=== PATIENT | female | born 1990 | race Caucasian/White ===

== ENCOUNTER 2018-03-23 15:02 | Inpatient (IN) | payer BC ==
[2018-03-23 15:31] VITALS: BMI 28.1
--- NOTE | 2018-03-23 16:52 | HP ---
COWS - Scale Resting Pulse: 2= ME 101-120 Sweatin= Chills/Flushing Restless Observation: 1= Difficult to Sit Still Pupil Size: 0= Normal to Room Light Bone or Joint Aches: 4=Acute Joint/Muscle Pain Runny Nose/ Eye Tearin= None GI Upset > 30mins: 2= Nausea/Diarrhea Tremor Observation: 2= Slight Tremor Visible Yawning Observation: 0= None Anxiety or Irritability: 2=Irritable/Anxious Goose Flesh Skin: 0=Smooth Skin COWS Score: 14 CIWA Score Nausea/Vomitin-Mild Nausea/No Vomiting Muscle Tremors: 3 Anxiety: 3 Agitation: 3 Paroxysmal Sweats: 3 Orientation: 0-Oriented Tacttile Disturbances: 2-Mild Itch/Numbness/Burn Auditory Disturbances: 1-Very Mild Visual Disturbances: 1-Very Mild Sensitivity Headache: 2-Mild CIWA-Ar Total Score: 19 - Admission Criteria [facility] Guidelines: Admission for Medically Managed Detox: Requires at least one of the followin. CIWA greater than 12 2. Seizures within the past 24 hours 3. Delirium tremens within the past 24 hours 4. Hallucinations within the past 24 hours 5. Acute intervention needed for co occurring medical disorder 6. Acute intervention needed for co occurring psychiatric disorder 7. Severe withdrawal that cannot be handled at a lower level of care (continued vomiting, continued diarrhea, abnormal vital signs) requiring intravenous medication and/or fluids 8. Patient presents the following: CIWA greater than 12 Admission Criteria Met: Admission criteria met Admission ROS S - [facility] Chief Complaint: seeking detox for c/o withdrawal sx's associated with heroin and alchol withdrawal. Allergies/Adverse Reactions: Allergies Allergy/AdvReac Type Severity Reaction Status Date / Time No Known Allergies Allergy Verified 03/23/18 15:42 History of Present Illness: 27 Y.O. FEMALE WITH HX/O ALCOHOLISM AND OPIOID DEPENDENCE HERE FOR DETOX. CLIENT IS KNOWN TO THIS PROGRAM .LAST HERE 11/2015. SELF REFERRED. DENIES ANY SIGNIFICANT CLEAN DERREK,E IN THE PAST YEAR. STATES LAST DETOX WAS ABOUT A YEAR AGO AT [facility]. DENIES HX/O SEIZURE, AVH, DT'S. SHE DOES REPORTS BLACK OUT EPISODES. CURRENTLY RESIDE WITH FAMILY. PMHX-ASTHMA PSYCH- INSOMNIA, ANXIETY DEPRESSION Exam Limitations: No Limitations - Ebola screening Have you traveled outside of the country in the last 21 days: No Have you had contact with anyone from an Ebola affected area: No Have you been sick,other than usual withdrawal symptoms: No Do you have a fever: No - Review of Systems Constitutional: Chills, Malaise, Night Sweats, Changes in sleep, Unintentional Wgt. Loss EENT: reports: No Symptoms Reported Respiratory: reports: No Symptoms reported Cardiac: reports: No Symptoms Reported GI: reports: Nausea, Poor Fluid Intake : reports: No Symptoms Reported Musculoskeletal: reports: Back Pain, Joint Pain, Joint Stiffness Integumentary: reports: No Symptoms Reported Neuro: reports: Tremors (R/T WITHDRAWAL) Endocrine: reports: No Symptoms Reported Hematology: reports: No Symptoms Reported Psychiatric: reports: Agitated, Anxious, Depressed Other Systems: Reviewed and Negative Patient History - Patient Medical History Hx Anemia: No Hx Asthma: Yes (ON ALBUTEROL) Hx Chronic Obstructive Pulmonary Disease (COPD): No Hx Cancer: No Hx Cardiac Disorders: No Hx Congestive Heart Failure: No Hx Hypertension: No Hx Hypercholesterolemia: No Hx Pacemaker: No HX Cerebrovascular Accident: No Hx Seizures: No Hx Dementia: No Hx Diabetes: No Hx Gastrointestinal Disorders: No Hx Liver Disease: No Hx Genitourinary Disorders: No Hx Sexually Transmitted Disorders: No Hx Renal Disease (ESRD): No Hx Thyroid Disease: No Hx Human Immunodeficiency Virus (HIV): No Hx Hepatitis C: No Hx Depression: Yes Hx Suicide Attempt: No Hx Bipolar Disorder: No Hx Schizophrenia: No Other Medical History: ANXIETY, INSOMNIA - Patient Surgical History Past Surgical History: Yes Hx Neurologic Surgery: No Hx Cataract Extraction: No Hx Cardiac Surgery: No Hx Lung Surgery: No Hx Breast Surgery: No Hx Breast Biopsy: No Hx Abdominal Surgery: No Hx Appendectomy: No Hx Cholecystectomy: No Hx Genitourinary Surgery: No Hx Section: No Hx Orthopedic Surgery: No Other Surgical History: tmj AT AGE 20; TONSILLECTOMY Anesthesia Reaction: No - PPD History Previous Implant?: Yes Documented Results: Negative w/proof Implanted On Prior [facility] Admission?: Yes Date: 11/22/15 Results: NEGATIVE PPD to be Administered?: Yes - Reproductive History Patient is a Female of Child Bearing Age (11 -55 yrs old): Yes Last Menstrual Period: 03/23/18 LMP comment: Patient : No ([facility] NEGATIVE) - Smoking Cessation Smoking history: Current some day smoker Have you smoked in the past 12 months: Yes Aproximately how many cigarettes per day: 2 Cigars Per Day: 0 Hx Chewing Tobacco Use: No Initiated information on smoking cessation: Yes 'Breaking Loose' booklet given: 03/23/18 - Substance & Tx. History Hx Alcohol Use: Yes Hx Substance Use: Yes Substance Use Type: Alcohol, Heroin, Marijuana Hx Substance Use Treatment: Yes ([facility]) - Substances Abused Heroin Route: Injection Frequency: Daily Amount used: 1 bundle Age of first use: 22 Date of Last Use: 03/23/18 Alcohol Route: Oral Frequency: Daily Amount used: 6 cans of beer, 2-3 glasses of rum Age of first use: 15 Date of Last Use: 03/23/18 Marijuana/Hashish Route: Smoking Frequency: 1-2 times per week Amount used: 1 joint Age of first use: 15 Date of Last Use: 03/21/18 Family Disease History - Family Disease History Family Disease History: Other: Father (ALCOHOLISM), Mother (ALCOHOLISM), Brother (ALCOHOLISM) Admission Physical Exam [facility] - Vital Signs Vital Signs: Vital Signs - 24 hr 03/23/18 15:28 Temperature 98.9 F Pulse Rate 102 H Respiratory 18 Rate Blood Pressure 127/83 - Physical General Appearance: Yes: Appropriately Dressed, Tremorous, Anxious HEENTM: Yes: EOMI, Normocephalic, Normal Voice, NICK (SLIGHT DIALATED), Pharynx Normal Respiratory: Yes: Chest Non-Tender, Lungs Clear, Normal Breath Sounds, No Respiratory Distress, No Accessory Muscle Use Neck: Yes: No masses,lesions,Nodules, Supple, Trachea in good position Breast: Yes: Breast Exam Deferred Cardiology: Yes: Regular Rhythm, S1, S2, Tachycardia Abdominal: Yes: Normal Bowel Sounds, Non Tender, Soft, Other (OLD SCARS FROM CLIENT USE TO CUT SELF) Genitourinary: Yes: Within Normal Limits (NO C/O) Back: Yes: Normal Inspection Musculoskeletal: Yes: full range of Motion, Gait Steady Extremities: Yes: Normal Range of Motion, Non-Tender, Tremors Neurological: Yes: Fully Oriented, Alert, Motor Strength 5/5, Depressed Affect Integumentary: Yes: Warm, Moist, Other (FLUSHED) Lymphatic: Yes: Within Normal Limits - Diagnostic (1) Opioid dependence with withdrawal Current Visit: Yes Status: Acute (2) Cannabis dependence, uncomplicated Current Visit: Yes Status: Chronic (3) Depressed affect Current Visit: Yes Status: Acute (4) At risk for dehydration due to poor fluid intake Current Visit: Yes Status: Acute (5) Alcohol dependence with uncomplicated withdrawal Current Visit: Yes Status: Acute (6) Asthma Current Visit: Yes Status: Chronic Qualifiers: Asthma severity: mild Asthma persistence: intermittent Asthma complication type: uncomplicated Qualified Code(s): J45.20 - Mild intermittent asthma, uncomplicated (7) Substance or medication-induced sleep disorder, insomnia type Current Visit: Yes Status: Suspected Cleared for Admission [facility] - Detox or Rehab [facility] Level of Care: Medically Managed Detox Regimen/Protocol: Methadone/Valium Claeared for Rehab Admission: No S Breath Alcohol Content Breath Alcohol Content: 0.074 Urine Pregancy Test - Result Urine Test Results: Negative- NO Line Present Urine Drug Screen - Results Drug Screen Negative: No Urine Drug Screen Results: THC-Marijuana, OPI-Opiates, OXY-Oxycodone
[2018-03-23] MEDS ORDERED: P-EPHED 60MG/TRIPROLIDI 2.5MG TABLET PO PRN (17:10)
[2018-03-23] MEDS ORDERED: MAGNESIUM HYDROX 2400MG/30ML ORAL SUSPENSION 30 ML CUP PO PRN (17:10)
[2018-03-23] MEDS ORDERED: MENTHOL/PHENOL 1 EACH UD MM PRN (17:10)
[2018-03-23] MEDS ORDERED: LOPERAMIDE HCL 2 MG CAPSULE PO PRN (17:10)
[2018-03-23] MEDS ORDERED: MAGNESIUM CITRATE 300 ML BOTTLE PO PRN (17:10)
[2018-03-23] MEDS ORDERED: ACETAMINOPHEN 325 MG TABLET (FP) PO PRN (17:10)
[2018-03-23] MEDS ORDERED: guaiFENesin/D-METHORPHAN HB 10 ML UNIT-DOSE CUPS PO PRN (17:10)
[2018-03-23] MEDS ORDERED: MAG HYDROX/AL HYDROX/SIMETH 30 ML UNIT-DOSE CUP PO PRN (17:10)
[2018-03-23] MEDS ORDERED: NICOTINE POLACRILEX 2 MG GUM BC PRN (17:10)
[2018-03-23] MEDS ORDERED: ALBUTEROL SO4 8 GM HFA INHALER IH PRN (17:11)
[2018-03-23] MEDS ORDERED: METHADONE HCL 10 MG TABLET (FOR DETOX USE ONLY) PO ONE ×2 (18:45→23:00)
[2018-03-23] MEDS ORDERED: diazePAM 5 MG TABLET PO ONE (18:45)
[2018-03-23] MEDS: IBUPROFEN 400 MG TABLET (FP) PO PRN (20:40)
[2018-03-23] MEDS ORDERED: MELATONIN 5 MG TABLETS PO PRN (22:00)
[2018-03-23] MEDS: THIAMINE HCL 100 MG TABLET (FP) PO SCH (22:59)
[2018-03-23] MEDS: diazePAM 5 MG TABLET PO SCH (23:00)
[2018-03-24] MEDS: diazePAM 5 MG TABLET PO SCH ×3 (05:14→22:12)
[2018-03-24] MEDS: IBUPROFEN 400 MG TABLET (FP) PO PRN ×2 (08:38→17:51)
[2018-03-24] MEDS: diazePAM 5 MG TABLET PO PRN ×2 (08:38→17:49)
[2018-03-24] MEDS: NICOTINE 14 MG/24 HOURS TOPICAL PATCH TD SCH (09:56)
[2018-03-24] MEDS: PRENATAL VITAMINS W/ FOLIC ACID TABLET (FP) PO SCH (09:56)
[2018-03-24] MEDS ORDERED: METHADONE HCL 10 MG TABLET (FOR DETOX USE ONLY) PO SCH (10:00)
[2018-03-24 10:45] LABS: HEMOGLOBIN 12.5 GM/dL (10.7-15.3); MCH 29.4 pg (25.7-33.7); MCHC 32.1 g/dl (32.0-36.0); MEAN CELL VOLUME 91.6 fl (80-96); PLATELET COUNT 143 K/MM3 (134-434); RBC 4.26 M/mm3 (3.60-5.2); RDW 13.4 % (11.6-15.6); WHITE BLOOD COUNT 6.3 K/mm3 (4.0-10.0)
[2018-03-24 11:13] LABS: BLOOD UREA NITROGEN 9 mg/dL (7-18); CREATININE 0.7 mg/dL (0.55-1.3); GLUCOSE,RANDOM 77 mg/dL (74-106); SODIUM 136 mmol/L (136-145)
[2018-03-24 11:14] LABS: ALBUMIN 3.7 g/dl (3.4-5.0); ALK PHOS 52 U/L (45-117); ANION GAP 5 MMOL/L (8-16); BILIRUBIN,TOTAL 0.8 mg/dL (0.2-1); CALCIUM 9.2 mg/dL (8.5-10.1); CHLORIDE 104 mmol/L (98-107); CO2 27 mmol/L (21-32); POTASSIUM 4.2 mmol/L (3.5-5.1); SGOT/AST 103 U/L (15-37); SGPT/ALT 250 U/L (13-61); TOT PROT 7.2 g/dl (6.4-8.2)
--- NOTE | 2018-03-24 12:30 | PN ---
S CIWA - CIWA Score Nausea/Vomitin Muscle Tremors: 3 Anxiety: 3 Agitation: 3 Paroxysmal Sweats: 2 Orientation: 0-Oriented Tacttile Disturbances: 1-Very Mild Itch/Numbness Auditory Disturbances: 1-Very Mild Visual Disturbances: 1-Very Mild Sensitivity Headache: 2-Mild CIWA-Ar Total Score: 18 BHS COWS - Scale Resting Pulse: 0= [place] 80 or Below Sweatin= Chills/Flushing Restless Observation: 1= Difficult to Sit Still Pupil Size: 0= Normal to Room Light Bone or Joint Aches: 2= Severe Diffuse Aches Runny Nose/ Eye Tearin= Runny Nose/Eyes GI Upset > 30mins: 2= Nausea/Diarrhea Tremor Observation of Outstretched Hands: 2= Slight Tremor Visible Yawning Observation: 1= 1-2x During Session Anxiety or Irritability: 2=Irritable/Anxious Goose Flesh Skin: 3=Piloerection COWS Score: 16 BHS Progress Note (SOAP) Subjective: Tremors, nasal congestion, back pain, interrupted sleep and restlessness Objective: 03/24/18 12:28 Vital Signs 03/24/18 03/24/18 06:00 09:40 Temperature 98.6 F 98.2 F Pulse Rate 80 83 Respiratory 18 18 Rate Blood Pressure 138/91 138/82 Laboratory Last Values WBC 6.3 K/mm3 (4.0-10.0) 03/24/18 08:00 RBC 4.26 M/mm3 (3.60-5.2) 03/24/18 08:00 Hgb 12.5 GM/dL (10.7-15.3) 03/24/18 08:00 Hct 39.0 % (32.4-45.2) 03/24/18 08:00 MCV 91.6 fl (80-96) 03/24/18 08:00 MCH 29.4 pg (25.7-33.7) 03/24/18 08:00 MCHC 32.1 g/dl (32.0-36.0) 03/24/18 08:00 RDW 13.4 % (11.6-15.6) 03/24/18 08:00 Plt Count 143 K/MM3 (134-434) 03/24/18 08:00 MPV 12.0 fl (7.5-11.1) H 03/24/18 08:00 Sodium 136 mmol/L (136-145) 03/24/18 08:00 Potassium 4.2 mmol/L (3.5-5.1) 03/24/18 08:00 Chloride 104 mmol/L (98-107) 03/24/18 08:00 Carbon Dioxide 27 mmol/L (21-32) 03/24/18 08:00 Anion Gap 5 MMOL/L (8-16) L 03/24/18 08:00 BUN 9 mg/dL (7-18) 03/24/18 08:00 Creatinine 0.7 mg/dL (0.55-1.3) 03/24/18 08:00 Creat Clearance w eGFR > 60 (>60) 03/24/18 08:00 Random Glucose 77 mg/dL (74-106) 03/24/18 08:00 Calcium 9.2 mg/dL (8.5-10.1) 03/24/18 08:00 Total Bilirubin 0.8 mg/dL (0.2-1) 03/24/18 08:00 AST 103 U/L (15-37) H 03/24/18 08:00 ALT 250 U/L (13-61) H 03/24/18 08:00 Alkaline Phosphatase 52 U/L (45-117) 03/24/18 08:00 Total Protein 7.2 g/dl (6.4-8.2) 03/24/18 08:00 Albumin 3.7 g/dl (3.4-5.0) 03/24/18 08:00 RPR Titer Nonreactive (NONREACTIVE) 03/24/18 08:00 Labs noted Severe anxiety, crying due to back pain and lack of sleep Assessment: 03/24/18 12:29 Withdrawal sx Plan: Continue detox Add flexerill to regimen
[2018-03-24] MEDS: CYCLOBENZAPRINE HCL 10 MG TABLET (FP) PO PRN ×2 (13:22→22:20)
--- NOTE | 2018-03-24 14:49 | CONSULT ---
[facility] Psychiatric Consult - Data Date of interview: 03/24/18 Admission source: [facility] Identifying data: Readmission to [facility] for this 27 y/o female seeking detoxification treatment, on , for alcohol,opioid and cannabis dependence. Patient is single without children, domiciled, currently unemployed and supported by her parents. Substance Abuse History: Confirmed by patient in this interview. Details in current [facility] report : Smoking history: Current some day smoker. Have you smoked in the past 12 months: Yes. Aproximately how many cigarettes per day: 2. Cigars Per Day: 0. Hx Chewing Tobacco Use: No. Initiated information on smoking cessation: Yes. 'Breaking Loose' booklet given: 03/23/18. - Substance & Tx. History. Hx Alcohol Use: Yes. Hx Substance Use: Yes. Substance Use Type : Alcohol, Heroin, Marijuana. Hx Substance Use Treatment: Yes ([facility]) . - Substances Abused. Heroin. Route: Injection. Frequency: Daily. Amount used: 1 bundle. Age of first use: 22. Date of Last Use: 03/23/18. Alcohol. Route: Oral. Frequency: Daily. Amount used: 6 cans of beer, 2-3 glasses of rum. Age of first use: 15. Date of Last Use: 03/23/18. Marijuana/Hashish. Route: Smoking. Frequency: 1-2 times per week. Amount used : 1 joint. Age of first use: 15. Date of Last Use: 03/21/18 Medical History: Anemia and bronchial asthma. Psychiatric History: Patient admits to a history of one psychiatric hospitalization at [address] [place] [id number] (discharged after 4 days).Diagnosed with Bipolar Disorder, MDD and Anxiety Disorder. Ms Dale declares that she has been treated with various psychotropic medications (lithium, valproate, fluoxetine, duloxetine, klonopin, zolpidem, escitalopram). " Nothing worked for me. I stopped taking them ". Patient used to be followed at [facility] OPD clinic : NO SHOW for one year. History of suicide attempts (episodes of self mutilation). Physical/Sexual Abuse/Trauma History: Not discussed. Patient declines. Additional Comment: Urine Drug Screen Results: THC-Marijuana, OPI-Opiates, OXY- Oxycodone. Noted. Mental Status Exam - Mental Status Exam Alert and Oriented to: Time, Place, Person Cognitive Function: Good Patient Appearance: Well Groomed (overweight) Mood: Nervous, Anxious, Apprehensive Affect: Mood Congruent, Labile Patient Behavior: Fatigued, Appropriate, Cooperative Speech Pattern: Clear Voice Loudness: Normal Thought Process: Goal Oriented Thought Disorder: Not Present Hallucinations: Denies Suicidal Ideation: Denies Homicidal Ideation: Denies Insight/Judgement: Poor Sleep: Poorly, Difficulty falling asleep Appetite: Good Gait/Station: Normal Psychiatric Findings - Problem List ([place] 1, 2,3) (1) Opioid dependence with withdrawal Current Visit: Yes Status: Acute (2) Alcohol dependence with uncomplicated withdrawal Current Visit: Yes Status: Acute (3) Cannabis dependence, uncomplicated Current Visit: Yes Status: Acute (4) Sedative hypnotic or anxiolytic dependence Current Visit: Yes Status: Acute (5) Substance induced mood disorder Current Visit: Yes Status: Acute (6) Bipolar disorder Current Visit: No Status: Chronic Comment: As per self-report. Non compliant with treatment. (7) Insomnia Current Visit: Yes Status: Acute (8) Non-compliant patient Current Visit: Yes Status: Chronic - Initial Treatment Plan Initial Treatment Plan: Psychoeducation. Sleep hygiene. Detoxification in progress. Discussed with patient : current measures for relapse prevention ( methadone maintenance, FABIAN naltrexone, suboxone, NA/AA fellowships, psychotherapy). Responded with ambivalence. Hypnotic medications discussed as well. Patient agreed to a trial of mirtazapine. Side effects/benefits reviewed. Remeron 15 mg po hs. Ordered. Ms Dale is made aware of risks taken by abstaining from psychiatric OPD care (relapses, rehospitalizations, deterioration of functioning, recurrence of impulsive behaviors). Observation.
[2018-03-24] MEDS: THIAMINE HCL 100 MG TABLET (FP) PO SCH (22:12)
[2018-03-24] MEDS: MIRTAZAPINE 15 MG TABLET (FP) PO SCH (22:12)
[2018-03-25] MEDS: diazePAM 5 MG TABLET PO PRN ×3 (04:04→17:13)
[2018-03-25] MEDS: diazePAM 5 MG TABLET PO SCH ×2 (09:09→22:07)
[2018-03-25] MEDS: PRENATAL VITAMINS W/ FOLIC ACID TABLET (FP) PO SCH (09:09)
[2018-03-25] MEDS: NICOTINE 14 MG/24 HOURS TOPICAL PATCH TD SCH (09:39)
[2018-03-25] MEDS ORDERED: METHADONE HCL 5 MG TABLET (FOR DETOX USE ONLY) PO SCH (10:00)
[2018-03-25] MEDS: CYCLOBENZAPRINE HCL 10 MG TABLET (FP) PO PRN ×3 (10:23→22:07)
--- NOTE | 2018-03-25 11:11 | PN ---
S CIWA - CIWA Score Nausea/Vomitin-Mild Nausea/No Vomiting Muscle Tremors: 3 Anxiety: 3 Agitation: 2 Paroxysmal Sweats: 1-Minimal Palms Moist Orientation: 0-Oriented Tacttile Disturbances: 1-Very Mild Itch/Numbness Auditory Disturbances: 1-Very Mild Visual Disturbances: 0-None Headache: 1-Very Mild CIWA-Ar Total Score: 13 BHS COWS - Scale Resting Pulse: 0= [place] 80 or Below Sweatin= Chills/Flushing Restless Observation: 1= Difficult to Sit Still Pupil Size: 0= Normal to Room Light Bone or Joint Aches: 1= Mild Discomfort Runny Nose/ Eye Tearin= Nasal Congestion GI Upset > 30mins: 2= Nausea/Diarrhea Tremor Observation of Outstretched Hands: 2= Slight Tremor Visible Yawning Observation: 1= 1-2x During Session Anxiety or Irritability: 1=Feels Anxious/Irritable Goose Flesh Skin: 0=Smooth Skin COWS Score: 10 BHS Progress Note (SOAP) Subjective: wants to leave a day early to rehab patient prefer one dose of 15 mg of methadone instead of two doses sweat tremor anxiety mild body aches Objective: 03/25/18 11:12 Vital Signs Temperature 98.2 F 03/25/18 10:19 Pulse Rate 82 03/25/18 10:19 Respiratory Rate 18 03/25/18 10:19 Blood Pressure 128/69 03/25/18 10:19 O2 Sat by Pulse Oximetry (%) Laboratory Last Values WBC 6.3 K/mm3 (4.0-10.0) 03/24/18 08:00 RBC 4.26 M/mm3 (3.60-5.2) 03/24/18 08:00 Hgb 12.5 GM/dL (10.7-15.3) 03/24/18 08:00 Hct 39.0 % (32.4-45.2) 03/24/18 08:00 MCV 91.6 fl (80-96) 03/24/18 08:00 MCH 29.4 pg (25.7-33.7) 03/24/18 08:00 MCHC 32.1 g/dl (32.0-36.0) 03/24/18 08:00 RDW 13.4 % (11.6-15.6) 03/24/18 08:00 Plt Count 143 K/MM3 (134-434) 03/24/18 08:00 MPV 12.0 fl (7.5-11.1) H 03/24/18 08:00 Sodium 136 mmol/L (136-145) 03/24/18 08:00 Potassium 4.2 mmol/L (3.5-5.1) 03/24/18 08:00 Chloride 104 mmol/L (98-107) 03/24/18 08:00 Carbon Dioxide 27 mmol/L (21-32) 03/24/18 08:00 Anion Gap 5 MMOL/L (8-16) L 03/24/18 08:00 BUN 9 mg/dL (7-18) 03/24/18 08:00 Creatinine 0.7 mg/dL (0.55-1.3) 03/24/18 08:00 Creat Clearance w eGFR > 60 (>60) 03/24/18 08:00 Random Glucose 77 mg/dL (74-106) 03/24/18 08:00 Calcium 9.2 mg/dL (8.5-10.1) 03/24/18 08:00 Total Bilirubin 0.8 mg/dL (0.2-1) 03/24/18 08:00 AST 103 U/L (15-37) H 03/24/18 08:00 ALT 250 U/L (13-61) H 03/24/18 08:00 Alkaline Phosphatase 52 U/L (45-117) 03/24/18 08:00 Total Protein 7.2 g/dl (6.4-8.2) 03/24/18 08:00 Albumin 3.7 g/dl (3.4-5.0) 03/24/18 08:00 RPR Titer Nonreactive (NONREACTIVE) 03/24/18 08:00 HIV 1&2 Antibody Screen Negative 03/24/18 09:30 HIV P24 Antigen Negative 03/24/18 09:30 lab noted repeat ast alt Assessment: 03/25/18 11:15 withdrawal sx 03/25/18 11:16 liver enzyme elevation Plan: continue detox
[2018-03-25] MEDS: MIRTAZAPINE 15 MG TABLET (FP) PO SCH (22:07)
[2018-03-25] MEDS: THIAMINE HCL 100 MG TABLET (FP) PO SCH (22:07)
[2018-03-25 23:07] LABS: URINE APPEARANCE CLEAR; URINE BILIRUBIN NEGATIVE (<2.0 mg/dL); URINE COLOR LTYELLOW; URINE GLUCOSE (UA) NEGATIVE (NEGATIVE); URINE KETONE NEGATIVE (NEGATIVE); URINE LEUK ESTERASE NEGATIVE (NEGATIVE); URINE NITRITE NEGATIVE (NEGATIVE); URINE PROTEIN NEGATIVE (NEGATIVE); URINE UROBILINOGEN NEGATIVE mg/dL (0.2-1.0)
[2018-03-25 23:17] LABS: EPI CELLS RARE /HPF (FEW)
[2018-03-26] MEDS: diazePAM 5 MG TABLET PO PRN ×3 (01:21→12:38)
[2018-03-26] MEDS: CYCLOBENZAPRINE HCL 10 MG TABLET (FP) PO PRN ×2 (05:36→13:10)
[2018-03-26] MEDS ORDERED: METHADONE HCL 10 MG TABLET (FOR DETOX USE ONLY) PO SCH (10:00)
[2018-03-26] MEDS: NICOTINE 14 MG/24 HOURS TOPICAL PATCH TD SCH (10:11)
[2018-03-26] MEDS: diazePAM 5 MG TABLET PO SCH (10:12)
[2018-03-26] MEDS: PRENATAL VITAMINS W/ FOLIC ACID TABLET (FP) PO SCH (10:12)
--- NOTE | 2018-03-26 10:15 | PN ---
BHS Progress Note (SOAP) Subjective: agitation irritable anxiety Objective: 03/26/18 10:13 Vital Signs Temperature 97.7 F 03/26/18 06:59 Pulse Rate 61 03/26/18 06:59 Respiratory Rate 16 03/26/18 06:59 Blood Pressure 98/54 L 03/26/18 06:59 O2 Sat by Pulse Oximetry (%) Laboratory Tests 03/24/18 03/24/18 03/24/18 08:00 08:00 08:00 WBC 6.3 RBC 4.26 Hgb 12.5 Hct 39.0 MCV 91.6 MCH 29.4 MCHC 32.1 RDW 13.4 Plt Count 143 MPV 12.0 H Sodium 136 Potassium 4.2 Chloride 104 Carbon Dioxide 27 Anion Gap 5 L BUN 9 Creatinine 0.7 Creat Clearance w eGFR > 60 Random Glucose 77 Calcium 9.2 Total Bilirubin 0.8 AST 103 H ALT 250 H Alkaline Phosphatase 52 Total Protein 7.2 Albumin 3.7 Urine Color Urine Appearance Urine pH Ur Specific [place] Urine Protein Urine Glucose (UA) Urine Ketones Urine Blood Urine Nitrite Urine Bilirubin Urine Urobilinogen Ur Leukocyte Esterase Urine WBC (Auto) Urine RBC (Auto) Ur Epithelial Cells RPR Titer Nonreactive HIV 1&2 Antibody Screen HIV P24 Antigen 03/24/18 03/25/18 09:30 17:44 WBC RBC Hgb Hct MCV MCH MCHC RDW Plt Count MPV Sodium Potassium Chloride Carbon Dioxide Anion Gap BUN Creatinine Creat Clearance w eGFR Random Glucose Calcium Total Bilirubin AST ALT Alkaline Phosphatase Total Protein Albumin Urine Color Ltyellow Urine Appearance Clear Urine pH 6.0 Ur Specific [place] 1.011 Urine Protein Negative Urine Glucose (UA) Negative Urine Ketones Negative Urine Blood 1+ H Urine Nitrite Negative Urine Bilirubin Negative Urine Urobilinogen Negative Ur Leukocyte Esterase Negative Urine WBC (Auto) 1 Urine RBC (Auto) 4 Ur Epithelial Cells Rare RPR Titer HIV 1&2 Antibody Screen Negative HIV P24 Antigen Negative aaox3 ambulating no acute distress Assessment: 03/26/18 10:14 withdrawal sx Plan: continue detox increase fluids d/c in am
[2018-03-26 10:35] LABS: SGOT/AST 118 U/L (15-37); SGPT/ALT 252 U/L (13-61)
[2018-03-26] MEDS: IBUPROFEN 400 MG TABLET (FP) PO PRN (12:43)
[2018-03-26 12:57] VITALS: BP 126/79; PULSE 101; TEMP 98.4
[2018-03-26] MEDS ORDERED: hydrOXYzine PAMOATE 50 MG CAPSULE (FP) PO PRN (13:26)
--- NOTE | 2018-03-26 14:14 | PN ---
S Progress Note Note: pt refused to complete detox. Pt states she reached out with her boyfriend who is on our [facility]N detox to tell him she is signing out. Pt signed out AMA.
--- NOTE | 2018-03-26 14:16 | DS ---
[facility] Detox Discharge Summary Admission Date: 03/23/18 Discharge Date: 03/26/18 - History Present History: Alcohol Dependence, Cannabis Dependence, Cocaine Dependence, Opioid Dependence, Sedative Dependence - Physical Exam Results Vital Signs: Vital Signs Temperature 98.4 F 03/26/18 12:57 Pulse Rate 101 H 03/26/18 12:57 Respiratory Rate 18 03/26/18 12:57 Blood Pressure 126/79 03/26/18 12:57 O2 Sat by Pulse Oximetry (%) - Medication Discharge Medications: Ambulatory Orders Zolpidem Tartrate [Ambien] 10 mg PO HS 11/20/15 Albuterol Sulfate Inhaler - [Ventolin HFA Inhaler -] 2 inh PO Q4H PRN #1 inhaler 11/24/15 - Diagnosis (1) Alcohol dependence with uncomplicated withdrawal Current Visit: Yes Status: Chronic (2) At risk for dehydration due to poor fluid intake Current Visit: Yes Status: Acute (3) Cannabis dependence, uncomplicated Current Visit: Yes Status: Acute (4) Depressed affect Current Visit: Yes Status: Acute (5) Insomnia Current Visit: Yes Status: Acute (6) Low back pain Current Visit: Yes Status: Acute Qualifiers: Chronicity: chronic Back pain laterality: bilateral Sciatica presence: without sciatica Qualified Code(s): M54.5 - Low back pain; G89.29 - Other chronic pain (7) Opioid dependence with withdrawal Current Visit: Yes Status: Chronic (8) Sedative hypnotic or anxiolytic dependence Current Visit: Yes Status: Chronic (9) Substance induced mood disorder Current Visit: Yes Status: Acute (10) Asthma Current Visit: Yes Status: Chronic Qualifiers: Asthma severity: mild Asthma persistence: intermittent Asthma complication type: uncomplicated Qualified Code(s): J45.20 - Mild intermittent asthma, uncomplicated (11) Non-compliant patient Current Visit: Yes Status: Chronic (12) Substance or medication-induced sleep disorder, insomnia type Current Visit: Yes Status: Suspected (13) Alcohol-induced mood disorder Current Visit: No Status: Acute (14) Bipolar disorder Current Visit: No Status: Chronic (15) Cocaine abuse Current Visit: No Status: Chronic - AMA Did Patient Leave Against Medical Advice: Yes (going home)
--- NOTE | 2018-03-26 14:48 | PN ---
Psychiatric Progress Note Vital Signs: Vital Signs Period Temp Pulse Resp BP Sys/Gomez Pulse Ox Last 24 Hr 97.7 F-98.4 F 61-101 -18 98-126/54-79 Date of Session: 03/26/18 Chief Complaint:: "I am fine. I don't like this place. I miss home." HPI: Patient has decided to stop detox treatment. Wants to return home. No clinical evidence of withdrawal. Doing well. ROS: Unremarkable. Current Medications: Active Medications Generic Name Dose Route Start Last Admin Trade Name Freq PRN Reason Stop Dose Admin Al Hydroxide/Mg Hydroxide 30 ml 03/23/18 17:10 Mylanta Oral Suspension - PO Q6H PRN DYSPEPSIA Albuterol Sulfate 2 puff 03/23/18 17:11 Ventolin Hfa Inhaler - IH Q4H PRN SHORTNESS OF BREATH Cyclobenzaprine HCl 10 mg 03/24/18 12:21 03/26/18 13:10 Flexeril - PO 10 mg TID PRN Administration MUSCLE SPASMS Diazepam 5 mg 03/25/18 10:00 03/26/18 10:12 Valium - PO 03/26/18 22:01 5 mg BID CARY Administration Diazepam 5 mg 03/27/18 10:00 Valium - PO 03/27/18 10:01 DAILY CARY Diazepam 10 mg 03/23/18 17:10 03/26/18 12:38 Valium - PO 03/26/18 17:10 10 mg Q4H PRN Administration WITHDRAWAL(CONT SUBST) Eucalyptus/Menthol/Phenol/Sorbitol 1 each 03/23/18 17:10 Cepastat Lozenge - MM Q4H PRN SORE THROAT Guaifenesin 10 ml 03/23/18 17:10 Robitussin Dm - PO Q6H PRN COUGH Hydroxyzine Pamoate 50 mg 03/26/18 13:26 Vistaril - PO Q4H PRN FOR ITCHING Ibuprofen 400 mg 03/23/18 17:10 03/26/18 12:43 Motrin - PO 400 mg Q6H PRN Administration PAIN LEVEL 4-6 Loperamide HCl 4 mg 03/23/18 17:10 Imodium - PO Q6H PRN DIARRHEA Magnesium Citrate 300 ml 03/23/18 17:10 Citroma - PO Q48H PRN CONSTIPATION Magnesium Hydroxide 30 ml 03/23/18 17:10 Milk Of Magnesia - PO DAILY PRN CONSTIPATION Melatonin 5 mg 03/23/18 22:00 03/23/18 23:03 Melatonin PO 5 mg HS PRN Administration INSOMNIA Methadone HCl 5 mg 03/27/18 06:00 Dolophine - PO 03/27/18 06:01 DAILY CARY Mirtazapine 15 mg 03/24/18 22:00 03/25/18 22:07 Remeron - PO 15 mg HS CARY Administration Nicotine 14 mg 03/24/18 10:00 03/26/18 10:11 Nicoderm Patch - TD Not Given DAILY CARY Nicotine Polacrilex 2 mg 03/23/18 17:10 Nicorette Gum - BC Q2H PRN NICOTINE REPLACEMENT RX Multivit/Folic Acid/Iron 1 tab 03/24/18 10:00 03/26/18 10:12 Vitamins (Sjr) - PO 1 tab DAILY CARY Administration Pseudoephedrine/Triprolidine 1 combo 03/23/18 17:10 Actifed - PO TID PRN NASAL CONGESTION Thiamine HCl 100 mg 03/23/18 22:00 03/25/18 22:07 Vitamin B1 - PO 100 mg HS CARY Administration Medication(s) Change(s): Patient has declined script for mirtazapine. Current Side Effect: No Lab tests ordered: No Lab tests reviewed: Yes Provider note:: Called to re-evaluate this patient for risk of dangerousness to self. Chart reviewed. Case discussed with medical AUTO PHONE INSTALLER Blaine + RN Ms Harkins. Patient is interviewed, with medical students in attendance. Acccording to nurse 's note, the patient has made suicidal threats in response to being denied prn benzodiazepine. Ms Dale is observed as well groomed, conversant, relaxed and critical of services rendered at [address] [place] [address]. " If I knew that ambien was no longer used here, I would not have come ". She reports that she " does not like some nurses because they always have a reason not to give me what I want ". Patient comments that she feels like " wasting my time here " and she decided to leave to be with her relatives. " I will be more comfortable with my folks ". Patient states clearly that she has NO intention of staying away from opioid use. " I will continue to buy dope and get high. I cannot function without it ". Ms Dale , otherwise, has expressed no urges to hurt self or others. In fact, she indicated her plan to resume academic activities, get a degree and, eventually get a job in the future. No clinical evidence of psychosis or dano. Patient communicates with coherent, well-organized and logical thought processes. Does not escalate into impulse behaviors. Prefers to go home instead of getting in a conflictual rapport with staff. She appears to be receptive to the idea of FABIAN naltrexone. " I am thinking about it ". Ms Dale is NOT a danger to self or others at this time. Baseline mental status. Total face to face time:: 35 Mental Status Exam - Mental Status Exam Alert and Oriented to: Time, Place, Person Cognitive Function: Good Patient Appearance: Well Groomed Mood: Hopeful, Euthymic Affect: Appropriate, Normal Range Patient Behavior: Appropriate, Cooperative Speech Pattern: Clear, Appropriate Voice Loudness: Normal Thought Process: Intact, Goal Oriented Thought Disorder: Not Present Hallucinations: Denies Suicidal Ideation: Denies Homicidal Ideation: Denies Insight/Judgement: Fair Appetite: Good Muscle strength/Tone: Normal Gait/Station: Normal Psychiatric Treatment Plan - Problem List (1) Opioid dependence with withdrawal Current Visit: Yes Comment: . (2) Alcohol dependence with uncomplicated withdrawal Current Visit: Yes Comment: . (3) Cannabis dependence, uncomplicated Current Visit: Yes Comment: . (4) Sedative hypnotic or anxiolytic dependence Current Visit: Yes Comment: . (5) Substance induced mood disorder Current Visit: Yes Comment: . (6) Bipolar disorder Current Visit: No Comment: .As per self-report. Non compliant with treatment. (7) Insomnia Current Visit: Yes (8) Non-compliant patient Current Visit: Yes Comment: .
--- NOTE | 2018-03-26 23:55 | EKG ---
Test Reason : Blood Pressure : / mmHG Vent. Rate : 086 BPM Atrial Rate : 086 BPM P-R Int : 162 ms QRS Dur : 074 ms QT Int : 378 ms P-R-T Axes : 072 045 031 degrees QTc Int : 452 ms NORMAL SINUS RHYTHM NORMAL ECG NO PREVIOUS ECGS AVAILABLE Confirmed by SUJIT ESPINOZA MD ([id number]) on 03/26/2018 11:55:15 PM Referred By: Minnie Correa Confirmed By:SUJIT ESPINOZA MD
[2018-03-27] MEDS ORDERED: METHADONE HCL 5 MG TABLET (FOR DETOX USE ONLY) PO SCH (06:00)
[2018-03-27] MEDS ORDERED: METHADONE HCL 10 MG TABLET (FOR DETOX USE ONLY) PO SCH (10:00)
[2018-03-27] MEDS ORDERED: diazePAM 5 MG TABLET PO SCH (10:00)
[2018-03-28] MEDS ORDERED: METHADONE HCL 5 MG TABLET (FOR DETOX USE ONLY) PO SCH (06:00)
== END 2018-03-26 14:12 | disposition left against medical advice (07) | DRG 894 ==
LOC: YASAS 15:02 → Y6N 18:10
PROC: HZ2ZZZZ Detoxification Services for Substance Abuse Treatment (ICD-10-PCS; principal; 2018-03-23)
DX: F11.23 Opioid dependence with withdrawal (principal); F13.20 Sedative, hypnotic or anxiolytic dependence, uncomplicated; F14.20 Cocaine dependence, uncomplicated; F19.282 Other psychoactive substance dependence with psychoactive substance-induced sleep disorder; F10.230 Alcohol dependence with withdrawal, uncomplicated; F12.20 Cannabis dependence, uncomplicated; F19.24 Other psychoactive substance dependence with psychoactive substance-induced mood disorder; F31.9 Bipolar disorder, unspecified; G47.00 Insomnia, unspecified; M54.5 Low back pain; G89.29 Other chronic pain; J45.20 Mild intermittent asthma, uncomplicated; R45.89 Other symptoms and signs involving emotional state; Z91.89 Other specified personal risk factors, not elsewhere classified; Z91.19 Patient's noncompliance with other medical treatment and regimen; F10.24 Alcohol dependence with alcohol-induced mood disorder
CPT/HCPCS: 36415; 80053; 81003; 81015; 84450; 84460; 85027; 86593; 87389; 93005; 93010